=== PATIENT | female | born 1950 | race Caucasian/White ===

== ENCOUNTER 2016-10-04 10:23 | Outpatient (CLI) | payer MEDICARE ==
--- NOTE | 2016-10-05 16:19 | Mammography Report ---
DIGITAL SCREENING MAMMOGRAM: 10/04/2016 CLINICAL INDICATION: A 65-year-old nulliparous patient, for screening. COMPARISON: 07/2014, 08/2010, 10/2007. TECHNIQUE: Routine CC and MLO projections were obtained of the breasts. FINDINGS: The breasts demonstrate heterogeneously dense fibroglandular parenchyma bilaterally. Coars e and punctate, typically benign calcifications are present. No suspicious masses, clustered microcal cifications, or regions of architectural distortion are identified. IMPRESSION: BENIGN FINDINGS. RECOMMENDATION: ROUTINE ANNUAL SCREENING UNLESS OTHERWISE CLINICALLY INDICATED. BIRADS CATEGORY 2-BENIGN FINDINGS. STANDARD QUALIFYING STATEMENTS 1. This examination was reviewed with the aid of Computer-Aided Detection (CAD). 2. A negative or benign imaging report should not delay biopsy if clinically suspicious findings are present. Consider surgical consultation if warranted. More than 5% of cancers are not identified by i maging. 3. Dense breasts may obscure an underlying neoplasm. JOB #: [id number] JOB #:[id number]
== END 2016-10-04 10:24 | disposition home or self-care (01) ==
LOC: DI.S 10:23
PROVIDERS: ATTEND Physician Assistant
DX: Z12.31 Encounter for screening mammogram for malignant neoplasm of breast (principal)
CPT/HCPCS: 77067